=== PATIENT | female | born 1970 | race Caucasian/White ===

== ENCOUNTER 2019-02-19 17:40 | Emergency (ER) | payer OTHER ==
[2019-02-19 17:47] VITALS: BP 153/97
--- NOTE | 2019-02-19 18:18 | ED Physician Documentation ---
History of Present Illness - Stated complaint Stated Complaint: DENTAL/JAW PX - Chief complaint Chief Complaint: Heent - History obtained from History obtained from: Patient - Additonal information Additional information: Patient is a 48-year-old female who had dental work to the right lower molars in preparation for a crown about 1 week ago and subsequently has had nervelike discomfort to the area. Patient is attempting to contact dentistry. No fever, facial swelling erythema, gum changes, mouth discharge, difficulty swallowing, specific tooth pain or sensitivity, or other complications. Patient has been taking ibuprofen with minimal relief. No other improving or worsening factors noted. Review of Systems Constitutional: denies: Fever Ears: denies: Ear pain Nose: denies: Rhinorrhea / runny nose, Congestion Throat: reports: Dental pain / toothache. denies: Oral lesions / sores, Sore throat PD PAST MEDICAL HISTORY - Past Medical History Past Medical History: No - Past Surgical History Past Surgical History: No - Allergies Allergies/Adverse Reactions: Allergies Allergy/AdvReac Type Severity Reaction Status Date / Time acetaminophen [From Vicodin] AdvReac Rash Verified 02/19/19 17:48 hydrocodone [From Vicodin] AdvReac Rash Verified 02/19/19 17:48 meperidine [From Demerol] AdvReac Rash Verified 02/19/19 17:48 nickel AdvReac Rash Verified 02/19/19 17:48 PD ED PE NORMAL - Vitals Vital signs reviewed: Yes - General General: Alert and oriented X 3, No acute distress, Well developed/nourished - HEENT HEENT: Atraumatic, Moist mucous membranes, Pharynx benign, Dentition benign, Other (No evidence of intraoral infection, dental abscess, facial abscess. No TMJ.) - Neck Neck: Supple, no meningeal sign - Respiratory Respiratory: No respiratory distress - Derm Derm: Normal color, Warm and dry, No rash - Extremities Extremities: No deformity, No tenderness to palpate - Neuro Neuro: Alert and oriented X 3, No motor deficit, No sensory deficit - Psych Psych: Normal mood, Normal affect Results - Vitals Vitals: Vital Signs - 24 hr 02/19/19 17:44 Temperature 36.8 C Heart Rate 83 Respiratory 19 Rate Blood Pressure 153/97 H O2 Saturation 100 Oxygen O2 Source Room air PD MEDICAL DECISION MAKING - ED course Complexity details: considered differential, d/w patient, d/w family ED course: Patient presenting with nerve-like discomfort following dental instrumentation several weeks ago. Patient has been prepped for a crown. Do feel this is re lated to the recent dental instrumentation I do not find evidence of facial or dental abscess. Do not find evidence of TMJ or have concerns for dislocation or fracture. No signs of other intraoral infection or complication. Do not feel patient requires further interventions at this time, but needs primary care/dentistry follow-up, as well as supportive cares. Discussed this with patient and family who are comfortable with discharge plan. Departure - Departure Disposition: 01 Home, Self Care Clinical Impression: Nerve pain Condition: Good Instructions: ED Tooth Pain Follow-Up: your,dentist [Other] - Within 3 Days Sudhakar Rebolledo MD [Primary Care Provider] - Within 3 Days Comments: Please contact dentistry for close follow-up. May apply ice, as well as [id number] medications for pain relief including ibuprofen/Tylenol as needed. Please practice good oral hygiene to avoid infection. May also follow- up with primary care physician next to 3 days and return to ED sooner if experiencing worsening symptoms or have other concerns.
== END 2019-02-19 18:37 | disposition home or self-care (01) ==
LOC: ED 17:40
DX: M79.2 Neuralgia and neuritis, unspecified (principal)
CPT/HCPCS: 99281; 99282

== ENCOUNTER 2021-09-10 10:55 | Outpatient (CLI) | payer OTHER ==
--- NOTE | 2021-09-10 14:17 | Ultrasound Report ---
PROCEDURE: Pelvic w/Transvaginal INDICATIONS: VAGINAL BLEEDING TECHNIQUE: Real-time scanning was performed of the pelvic organs, with image documentation. Additional endovagi nal scanning was necessary due to incomplete visualization of the adnexal and endometrial structures by transabdominal scanning. COMPARISON: None. FINDINGS: No pathologic free abdominal or pelvic fluid. Uterus: Uterus is normal in size at 10.2 x 5.2 x 6.9 cm. The endometrium measures 9 mm in combined thickness. Ovaries: Right ovary measures 2.7 x 1.6 x 2.2 cm, calculated volume 5.0 cc. Hemorrhagic cyst measure s 1.5 x 1.4 cm. Left ovary measures 2.4 x 2.3 x 2.3 cm, calculated volume 9.1 cc. Simple cyst measure s 2.2 x 1.8 cm. IMPRESSION: Small bilateral ovarian cysts as above. Reviewed by: Wesley Salmeron MD on 09/10/2021 1:15 PM [place] Approved by: Wesley Salmeron MD on 09/10/2021 1:15 PM [place] Station ID: [id number]
== END 2021-09-10 10:56 | disposition home or self-care (01) ==
LOC: DI 10:55
DX: N93.9 Abnormal uterine and vaginal bleeding, unspecified (principal); N83.202 Unspecified ovarian cyst, left side; N83.201 Unspecified ovarian cyst, right side